=== PATIENT | female | born 1995 | race African-American/Black ===

== ENCOUNTER 2021-07-12 16:34 | Outpatient (CLI) | payer OTHER ==
[2021-07-12 17:32] VITALS: BP 128/68; PULSE 91; RESP 16; TEMP 97
--- NOTE | 2021-07-20 13:16 | P.MSEPDOC ---
Presenting Problems - Arrival Data Date of Arrival on Unit: 07/12/21 Time of Arrival on Unit: 16:34 Mode of Transport: Ambulatory - Complaint OB-Reason for Admission/Chief Complaint: Decreased Movement Medical History - Information : 1 Para: 0 Term: 0 : 0 Abortions: Spontaneous or Elective: 0 Number of Living Children: 0 - Gestational Age Gestational Age by YECENIA (wks/days): 38 Weeks and 4 Days Review of Systems - Review of Systems Constitutional: No problems Breast: No problems ENT: No problems Cardiovascular: No problems Respiratory: No problems Gastrointestinal: No problems Genitourinary: No problems Musculoskeletal: No problems Neurological: No problems Skin: No problems Vital Signs - Temperature Temperature: 97.0 F Temperature Source: Oral - Pulse Right Sitting Pulse Rate: 91 Pulse Assessment Method: Automatic Cuff - Respirations Respiratory Rate: 16 Oxygen Delivery Method: Room Air O2 Sat by Pulse Oximetry: 99 - Blood Pressure Right Arm Blood Pressure: 128/68 Blood Pressure Mean: 88 Blood Pressure Source: Automatic Cuff Medical Screen Scoring - Uterine Contractions Intensity: Mild Resting: Soft to palpation - Assessment - Baby A Heart Rate - NICHD Category: Category I (Normal) NST: Reactive Physician Notification - Physician Notified Physician Notified Date: 07/12/21 Physician Notified Time: 17:04 Physician: Shanda Mcbride Order Received: Yes (d/c home) Maternal Triage Index - Prompt/Priority 3 Prompt Priority 3: Yes Criteria Met for Priority 3: decreased movement, reactive nst Disposition - Disposition OB Disposition: Discharge to home Discharge Date: 07/12/21 Discharge Time: 17:08 I agree with the RN Medical Screening Exam: Yes Case reviewed; plan agreed upon as documented in EMR&OBIX.: Yes Diagnosis: DECREASED MOVEMENTS, THIRD TRIMESTER, UNSP
== END 2021-07-12 17:08 | disposition home or self-care (01) ==
LOC: FBPOP 16:34
PROVIDERS: ATTEND Obstetrics & Gynecology
DX: O36.8130 Decreased fetal movements, third trimester, not applicable or unspecified (principal); Z3A.38 38 weeks gestation of pregnancy
CPT/HCPCS: 59025; G0463; 99213

== ENCOUNTER 2021-07-21 06:07 | Inpatient (IN) | payer OTHER ==
--- NOTE | 2021-07-20 20:15 | P.HPOB ---
History of Present Illness H&P Date: 07/20/21 Chief Complaint: Induction of labor This is a 25 y.o. female, 1, para 0, with an estimated date of confinement of 07/22/2021, estimated gestational age of 39-6/7 weeks, who presents for induction of labor. She complains of irregular contractions and pressure. Her course has been relatively uncomplicated. She transferred care to [facility] at 32 weeks. Ultrasound at 35 weeks showed estimated weight of 6#1oz, 75-90%, with head measurements >90%. labs: Blood type-A+ Antibody screen-neg Hepatitis B surface antigen-neg RPR-NR Rubella-immune HIV-NR GC/Chlamydia/Trich-neg UDS-+for marijuana earlier in [place]-neg Quad-neg OB Hx: [employer] Hx: No hx STDs Social Hx: Single. Works at [employer]. Review of Systems Constitutional: Denies chills, Denies fever Eyes: denies blurred vision, denies pain Ears, nose, mouth and throat: Denies headache, Denies sore throat Cardiovascular: Denies chest pain, Denies shortness of breath Respiratory: Denies cough Gastrointestinal: Reports abdominal pain (irregular contractions) Genitourinary: Reports pelvic pain, Reports Musculoskeletal: Reports low back pain Integumentary: Denies pruritus, Denies rash Neurological: Reports weakness (History of brachial plexus injury at ) Psychiatric: Denies anxiety, Denies depression Past Medical History Additional Past Medical History / Comment(s): History of brachial plexus injury at Past Surgical History: Cholecystectomy, Tonsillectomy Past Anesthesia/Blood Transfusion Reactions: No Reported Reaction Past Psychological History: No Psychological Hx Reported Smoking Status: Never smoker Past Alcohol Use History: None Reported Past Drug Use History: None Reported - Past Family History Mother Family Medical History: Hypertension Medications and Allergies Home Medications Medication Instructions Recorded Confirmed Type Ascorbic Acid [Vitamin C] 250 mg PO DAILY 07/12/21 07/12/21 History Cholecalciferol (Vitamin D3) 125 mcg PO DAILY 07/12/21 07/12/21 History [Vitamin D3 (125 MCG = 5,000 IU)] Iron 18 mg PO 07/12/21 History Pnv No.95/Ferrous Fum/Folic AC 1 each PO 07/12/21 History [ Multivitamin Tablet] Allergies Allergy/AdvReac Type Severity Reaction Status Date / Time No Known Allergies Allergy Verified 07/12/21 16:37 Exam Osteopathic Statement: *. No significant issues noted on an osteopathic structural exam other than those noted in the History and Physical/Consult. HEENT: within normal limits Heart: regular rate and rhythm Lungs: clear to auscultation bilaterally Abdomen: , fundal height 40 cm Cervix: 1.5 cm/60%/-2 heart tones: 140's by doppler Extremities: neg. Irma's Assessment and Plan (1) 39 weeks gestation of Status: Acute Code(s): Z3A.39 - 39 WEEKS GESTATION OF SNOMED Code(s): 22665912 Plan: Proceed with oxytocin induction of labor. Expectant management. Epidural anesthesia if desired.
[2021-07-21] MEDS: LACTATED RINGERS 1,000 ML IV SCH ×3 (06:15→16:18)
[2021-07-21] MEDS ORDERED: METHYLERGONOVINE 0.2 MG/ML 1 ML AMP IM PRN (07:09)
[2021-07-21] MEDS ORDERED: OXYTOCIN 30 UNITS/500 ML NS 30 UNIT in SALINE 1 500ML.BAG IV SCH (07:09)
[2021-07-21] MEDS ORDERED: LIDOCAINE 1% (10MG/ML) FOR IV START INTRADERMA PRN (07:09)
[2021-07-21] MEDS ORDERED: LIDOCAINE 0.5% (PF) 5 MG/ML (50 ML SDV) SQ PRN (07:09)
[2021-07-21] MEDS ORDERED: CARBOPROST TROMETHAMINE 250 MCG/ML 1 ML AMP IM PRN (07:09)
[2021-07-21] MEDS ORDERED: OXYTOCIN 10 UNIT/ML 1 ML VIAL IM PRN (07:09)
[2021-07-21] MEDS ORDERED: TERBUTALINE 1 MG/ML VIAL SQ PRN (07:09)
[2021-07-21 08:25] LABS: Basophils % (A) 0 %; Eosinophils # (A) 0.1 k/uL (0-0.7); Eosinophils % (A) 1 %; HCT 35.9 % (34.0-46.0); Lymphocytes # (A) 2.7 k/uL (1.0-4.8); Lymphocytes % (A) 23 %; MCH 30.6 pg (25.0-35.0); MCHC 33.5 g/dL (31.0-37.0); MCV 91.4 fL (80.0-100.0); Mean Platelet Volume 9.6; Monocytes # (A) 0.5 k/uL (0-1.0); Monocytes % (A) 4 %; Neutrophils # (A) 8.4 k/uL (1.3-7.7); Neutrophils % (A) 71 %; Platelet Count 257 k/uL (150-450); RBC 3.93 m/uL (3.80-5.40); RDW 13.8 % (11.5-15.5); WBC 11.9 k/uL (3.8-10.6)
[2021-07-21] MEDS ORDERED: BUTORPHANOL 1 MG/ML 1 ML VIAL IV PRN (10:11)
[2021-07-21] MEDS ORDERED: BUPIVACAINE (PF) 0.25% 30 ML VIAL ONE (14:40)
[2021-07-21] MEDS ORDERED: SODIUM CHLORIDE 0.9% 100 ML BAG ONE (14:40)
[2021-07-21] MEDS ORDERED: fentaNYL (PF) 50 MCG/ML 5 ML AMP ONE (14:40)
[2021-07-21] MEDS ORDERED: ROPIVACAINE 100 MG, fentaNYL (PF). 200 MCG in SODIUM CHLORIDE 0.9% 76 ML EPIDURAL ONE (15:17)
--- NOTE | 2021-07-21 19:44 | P.PROBDLV ---
Vaginal Delivery Note - . Vaginal Delivery Note: The patient progressed to complete dilation after oxytocin induction of labor and artificial rupture of membranes with thin meconium noted. Once reaching complete, she began pushing. 's head came to a crown. With one further push, the infant's head delivered across the perineum followed by the anterior shoulder. Nose and mouth were bulb suctioned at the perineum. Nuchal cord times one was reduced around the body with one further push. was placed on mother's abdomen and then cord was clamped and cut. was taken to warmer for evaluation. A viable female was noted with scores of 7 at 1 minute and 9 at 5 minutes and weight of 8 pounds 2.3 ounces. Placenta delivered shortly thereafter, intact, with a three-vessel cord. Uterus contracted well after oxytocin was given and uterine massage was carried out. Inspection of the perineum revealed no perineal lacerations. Estimated blood loss is approximately 100 mL's. Both mother and are in stable condition.
[2021-07-21] MEDS ORDERED: ACETAMINOPHEN TAB 325 MG TAB PO PRN (22:28)
[2021-07-21] MEDS ORDERED: diphenhydrAMINE 50 MG/ML 1 ML VIAL IVP PRN ×2 (22:28)
[2021-07-21] MEDS ORDERED: SIMETHICONE 80 MG CHEWABLE PO PRN (22:28)
[2021-07-21] MEDS ORDERED: HYDROCORTISONE 2.5% RECTAL CREAM 30 GM TUBE RECTAL PRN (22:28)
[2021-07-21] MEDS ORDERED: diphenhydrAMINE 50 MG CAP PO PRN (22:28)
[2021-07-21] MEDS ORDERED: ZOLPIDEM 5 MG TAB PO PRN (22:28)
[2021-07-21] MEDS ORDERED: diphenhydrAMINE 25 MG CAP PO PRN (22:28)
[2021-07-21] MEDS ORDERED: IBUPROFEN ORAL SUSP 100 MG/5 ML CUP PO PRN (22:28)
[2021-07-21] MEDS ORDERED: LANOLIN CREAM 5 GM TUBE TOPICAL PRN (22:28)
[2021-07-22] MEDS ORDERED: diphenhydrAMINE 50 MG/ML 1 ML VIAL IVP PRN (04:13)
[2021-07-22] MEDS: IBUPROFEN 600 MG TAB PO PRN ×2 (04:39→15:52)
[2021-07-22 06:31] LABS: Basophils % (A) 0 %; Eosinophils % (A) 0 %; HCT 32.8 % (34.0-46.0); HGB 10.9 gm/dL (11.4-16.0); Lymphocytes % (A) 16 %; MCH 30.5 pg (25.0-35.0); MCHC 33.2 g/dL (31.0-37.0); MCV 91.7 fL (80.0-100.0); Mean Platelet Volume 8.8; Monocytes # (A) 0.5 k/uL (0-1.0); Monocytes % (A) 4 %; Neutrophils # (A) 9.6 k/uL (1.3-7.7); Neutrophils % (A) 78 %; Platelet Count 205 k/uL (150-450); RBC 3.58 m/uL (3.80-5.40); RDW 13.8 % (11.5-15.5); WBC 12.3 k/uL (3.8-10.6)
[2021-07-22] MEDS ORDERED: SENNOSIDES-DOCUSATE SODIUM 1 EACH TAB PO SCH (08:00)
--- NOTE | 2021-07-22 08:56 | P.DS ---
Providers Date of admission: 07/21/21 06:07 Expected date of discharge: 07/22/21 Attending physician: Shanda Mcbride Primary care physician: Stated None - Discharge Diagnosis(es) (1) 39 weeks gestation of Current Visit: No Status: Acute Hospital Course: This is a 25-year-old female 1 para 0 who presented for induction of labor. She underwent oxytocin induction of labor and delivered vaginally a viable female infant on 07/21/2021 with scores of 7 at 1 minute and 9 at 5 minutes and infant weight of 8 pounds 2.3 ounces. Her course has been uncomplicated. Lochia has been decreasing. She is breast-feeding without difficulty. Pain is fairly well controlled with ibuprofen. Vital signs are stable. Abdomen is soft with fundus firm and nontender. Extremity show negative Homans. Impression is status post vaginal delivery day #1. Plan is to discharge home later today. Routine instructions are given. She is advised to follow up in the office in 6 weeks for a check. She is advised to call the office if she had has any further questions or concerns prior to her appointment time. She will be given up her section for ibuprofen. Procedures: Oxytocin induction of labor Spontaneous vaginal delivery of viable female infant on 07/21/2021 Patient Condition at Discharge: Stable Plan - Discharge Summary New Discharge Prescriptions: New Ibuprofen [Motrin] 600 mg PO Q6HR PRN #60 tab PRN Reason: Mild Pain (Scale 1 To 3) Continue Cholecalciferol (Vitamin D3) [Vitamin D3 (125 MCG = 5,000 IU)] 125 mcg PO DAILY Iron 18 mg PO DAILY Ascorbic Acid [Vitamin C] 250 mg PO DAILY Pnv No.95/Ferrous Fum/Folic AC [ Multivitamin Tablet] 1 each PO DAILY Discharge Medication List Ascorbic Acid [Vitamin C] 250 mg PO DAILY 07/12/21 [History] Cholecalciferol (Vitamin D3) [Vitamin D3 (125 MCG = 5,000 IU)] 125 mcg PO DAILY 07/12/21 [History] Iron 18 mg PO DAILY 07/12/21 [History] Pnv No.95/Ferrous Fum/Folic AC [ Multivitamin Tablet] 1 each PO DAILY 07/12/21 [History] Ibuprofen [Motrin] 600 mg PO Q6HR PRN #60 tab 07/22/21 [Rx] Follow up Appointment(s)/Referral(s): Shanda Mcbride DO [Doctor of Osteopathic Medicine] - 08/31/21 2:00 pm Activity/Diet/Wound Care/Special Instructions: Instructions 1. Do not begin any exercise program for 3 weeks. 2. Do not resume sexual relations for 3 weeks or longer if uncomfortable. 3. You may take tub baths or showers at any time. 4. You may use tampons if desired after 3 weeks. 5. Keep the area of episiotomy (stitches) clean and dry. 6. If you are not nursing, wear a good fitting, supportive bra during the day and limit fluid intake for at least 1 week to prevent breast engorgement. 7. Call the office, [phone], within the next week to make appointment for your 6 week checkup if it has not already been made. 8. Report any of the following occurrences to the doctor promptly: a. Heavy, excessive bleeding b. Chills, fever c. Burning or frequency of urination d. Pain or redness and breasts if nursing e. Increasing pain or swelling in episiotomy (stitches). In addition to the above instructions, the following additional should be followed: 1. No heavy lifting or straining (exercising) until after 6 week checkup. 2. Keep abdominal incision clean and dry: You may wear a dressing if more comfortable. 3. Make office appointment for 10 days after going home or as instructed by her doctor. Discharge Disposition: HOME SELF-CARE
[2021-07-22 20:12] VITALS: BP 113/73; PULSE 78; RESP 16; TEMP 98.6
== END 2021-07-22 20:30 | disposition home or self-care (01) | DRG 806 ==
LOC: 4FBP 06:07
PROVIDERS: ADMIT Obstetrics & Gynecology; ATTEND Obstetrics & Gynecology
PROC: 10E0XZZ Delivery of Products of Conception, External Approach (ICD-10-PCS; principal; 2021-07-21)
PROC: 3E033VJ Introduction of Other Hormone into Peripheral Vein, Percutaneous Approach (ICD-10-PCS; 2021-07-21)
PROC: 10907ZC Drainage of Amniotic Fluid, Therapeutic from Products of Conception, Via Natural or Artificial Opening (ICD-10-PCS; 2021-07-21)
DX: O69.81X0 Labor and delivery complicated by cord around neck, without compression, not applicable or unspecified (principal); O99.324 Drug use complicating childbirth; Z37.0 Single live birth; F12.90 Cannabis use, unspecified, uncomplicated; O77.0 Labor and delivery complicated by meconium in amniotic fluid; Z3A.39 39 weeks gestation of pregnancy; Z90.49 Acquired absence of other specified parts of digestive tract
CPT/HCPCS: 85025; 86850; 86900; 86901

== ENCOUNTER 2023-08-08 16:45 | Outpatient (CLI) | payer OTHER, BC ==
[2023-08-08 17:48] VITALS: BP 128/61; PULSE 89; RESP 16; TEMP 97
--- NOTE | 2023-08-10 09:24 | P.MSEPDOC ---
Presenting Problems - Arrival Data Date of Arrival on Unit: 08/08/23 Time of Arrival on Unit: 16:45 Mode of Transport: Ambulatory - Complaint OB-Reason for Admission/Chief Complaint: NST Comment: Pt presents to triage with written order from Dr. Mcbride for biweekly NST for twin gestation O30. Medical History - Information : 3 Para: 1 Term: 1 : 0 Abortions: Spontaneous or Elective: 0 Number of Living Children: 1 - Gestational Age Gestational Age by YECENIA (wks/days): 33 Weeks and 0 Days Review of Systems - Review of Systems Constitutional: No problems Breast: No problems ENT: No problems Cardiovascular: No problems Respiratory: No problems Gastrointestinal: No problems Genitourinary: No problems Musculoskeletal: No problems Neurological: No problems Skin: No problems Vital Signs - Temperature Temperature: 97.0 F Temperature Source: Temporal Artery Scan - Pulse Pulse Oximetery Pulse Rate: 89 Pulse Assessment Method: Pulse Oximetry - Respirations Respiratory Rate: 16 Oxygen Delivery Method: Room Air O2 Sat by Pulse Oximetry: 96 - Blood Pressure Right Arm Blood Pressure: 128/61 Blood Pressure Mean: 83 Blood Pressure Source: Automatic Cuff Medical Screen Scoring - Assessment - Baby A Baseline FHR: 140 Heart Rate - NICHD Category: Category I (Normal) NST: Reactive - Assessment - Baby B Baseline FHR: 140 Heart Rate - NICHD Category: Category I (Normal) NST: Reactive Physician Notification - Notification Comment Comment: Per written order from Dr. Mcbride, if NST is reactive, pt can be discharged home. Maternal Triage Index - Maternal Triage Index Presenting for scheduled procedure w/no complaint: No - Stat/Priority 1 Stat Priority 1: No - Urgent/Priority 2 Urgent Priority 2: No - Prompt/Priority 3 Prompt Priority 3: No - Non-Urgent/Priority 4 Non-Urgent Priority 4: No - Scheduled/Requesting Priority 5 Scheduled/Requesting Priority 5: Yes Criteria Met for Priority 5: Pt presents to triage with written order from Dr. Mcbride for biweekly NST for twin gestation O30. Disposition - Disposition OB Disposition: Discharge to home, Written follow up instructions reviewed Discharge Date: 08/08/23 Discharge Time: 17:17 I agree with the RN Medical Screening Exam: Yes Case reviewed; plan agreed upon as documented in EMR&OBIX.: Yes Diagnosis: TWIN , DICHORIONIC/DIAMNIOTIC, THIRD TRIMESTER
== END 2023-08-08 17:17 | disposition home or self-care (01) ==
LOC: FBPOP 16:45
PROVIDERS: ATTEND Obstetrics & Gynecology
DX: O30.043 Twin pregnancy, dichorionic/diamniotic, third trimester (principal); Z3A.33 33 weeks gestation of pregnancy
CPT/HCPCS: 59025

== ENCOUNTER 2023-08-10 14:49 | Outpatient (CLI) | payer BC, OTHER | END 2023-08-10 15:24 | disposition home or self-care (01) | LOC: FBPOP 14:49 | PROVIDERS: ATTEND Obstetrics & Gynecology | DX: O30.002 Twin pregnancy, unspecified number of placenta and unspecified number of amniotic sacs, second trimester (principal); Z3A.27 27 weeks gestation of pregnancy | CPT/HCPCS: 59025; 99213 ==

== ENCOUNTER 2023-08-14 14:09 | Outpatient (CLI) | payer BC, OTHER ==
[2023-08-14 17:56] VITALS: BP 125/68; PULSE 91; RESP 16; TEMP 97.2
== END 2023-08-14 15:18 | disposition home or self-care (01) ==
LOC: FBPOP 14:09
PROVIDERS: ATTEND Obstetrics & Gynecology
DX: O30.003 Twin pregnancy, unspecified number of placenta and unspecified number of amniotic sacs, third trimester (principal); Z3A.33 33 weeks gestation of pregnancy
CPT/HCPCS: 59025

== ENCOUNTER 2023-08-18 15:01 | Outpatient (CLI) | payer BC, OTHER ==
[2023-08-18 17:16] VITALS: BP 129/60; PULSE 90; RESP 18; TEMP 97.7
--- NOTE | 2023-08-19 07:01 | P.MSEPDOC ---
Presenting Problems - Arrival Data Date of Arrival on Unit: 08/18/23 Time of Arrival on Unit: 15:01 Mode of Transport: Ambulatory - Complaint OB-Reason for Admission/Chief Complaint: NST Medical History - Information : 2 Para: 1 Term: 1 : 0 Abortions: Spontaneous or Elective: 0 Number of Living Children: 1 - Gestational Age Gestational Age by YECENIA (wks/days): 34 Weeks and 3 Days - History Complications: Multiple Review of Systems - Review of Systems Constitutional: No problems Breast: No problems ENT: No problems Cardiovascular: No problems Respiratory: No problems Gastrointestinal: No problems Genitourinary: No problems Musculoskeletal: No problems Neurological: No problems Skin: No problems Vital Signs - Temperature Temperature: 97.7 F Temperature Source: Temporal Artery Scan - Pulse Pulse Oximetery Pulse Rate: 90 Pulse Assessment Method: Pulse Oximetry - Respirations Respiratory Rate: 18 Oxygen Delivery Method: Room Air O2 Sat by Pulse Oximetry: 99 - Blood Pressure Right Arm Blood Pressure: 129/60 Blood Pressure Mean: 83 Blood Pressure Source: Automatic Cuff Medical Screen Scoring - Uterine Contractions Frequency From (mins): 2 Frequency To (mins): 2 Duration From (seconds): 30 Duration To (seconds): 60 Intensity: Mild Resting: Soft to palpation - Assessment - Baby A Baseline FHR: 135 Heart Rate - NICHD Category: Category I (Normal) NST: Reactive - Assessment - Baby B Baseline FHR: 135 Heart Rate - NICHD Category: Category I (Normal) NST: Reactive Physician Notification - Physician Notified Physician Notified Date: 08/18/23 Physician Notified Time: 15:57 Physician: Tomy Silverman New Order Received: Yes (discharge home) - Notification Comment Comment: notified of pt here for NST but RN also tracing contractions pt describes as mild cramping. pt 34 3/7 weeks gestation and twins. order to discharge patient home with instructions Maternal Triage Index - Maternal Triage Index Presenting for scheduled procedure w/no complaint: Yes - Scheduled/Requesting Priority 5 Scheduled/Requesting Priority 5: Yes Criteria Met for Priority 5: Pt arrives for scheduled NST. pt is also having some tracable contractions every 2 minutes that she describes as mild cramping. Disposition - Disposition OB Disposition: Discharge to home Discharge Date: 08/18/23 Discharge Time: 16:00 I agree with the RN Medical Screening Exam: Yes Case reviewed; plan agreed upon as documented in EMR&OBIX.: Yes Diagnosis: RELATED CONDITIONS, UNSPECIFIED, THIRD TRIMESTER
== END 2023-08-18 16:00 | disposition home or self-care (01) ==
LOC: FBPOP 15:01
PROVIDERS: ATTEND Obstetrics & Gynecology
DX: O36.8393 Maternal care for abnormalities of the fetal heart rate or rhythm, unspecified trimester, fetus 3 (principal); Z3A.34 34 weeks gestation of pregnancy
CPT/HCPCS: 59025

== ENCOUNTER 2023-08-22 16:49 | Outpatient (CLI) | payer BC, OTHER ==
[2023-08-22 17:49] VITALS: BP 127/64; PULSE 93; RESP 16; TEMP 97.5
--- NOTE | 2023-08-23 08:15 | P.MSEPDOC ---
Presenting Problems - Arrival Data Date of Arrival on Unit: 08/22/23 Time of Arrival on Unit: 16:49 Mode of Transport: Ambulatory - Complaint OB-Reason for Admission/Chief Complaint: NST Comment: Pt presents to triage for biweekly NST for twins (O30). Pt has written order from Dr. Mcbride, if reactive, can discharge pt home. Medical History - Information : 2 Para: 1 Term: 1 : 0 Abortions: Spontaneous or Elective: 0 Number of Living Children: 1 - Gestational Age Gestational Age by YECENIA (wks/days): 35 Weeks and 0 Days Review of Systems - Review of Systems Constitutional: No problems Breast: No problems ENT: No problems Cardiovascular: No problems Respiratory: No problems Gastrointestinal: No problems Genitourinary: No problems Musculoskeletal: No problems Neurological: No problems Skin: No problems Vital Signs - Temperature Temperature: 97.5 F Temperature Source: Temporal Artery Scan - Pulse Pulse Oximetery Pulse Rate: 93 Pulse Assessment Method: Pulse Oximetry - Respirations Respiratory Rate: 16 Oxygen Delivery Method: Room Air - Blood Pressure Right Arm Blood Pressure: 127/64 Blood Pressure Mean: 85 Blood Pressure Source: Automatic Cuff Medical Screen Scoring - Assessment - Baby A Baseline FHR: 135 Heart Rate - NICHD Category: Category I (Normal) NST: Reactive - Assessment - Baby B Baseline FHR: 135 Heart Rate - NICHD Category: Category I (Normal) NST: Reactive Physician Notification - Notification Comment Comment: Pt has written order from Dr. Mcbride, if reactive, can discharge pt home. Maternal Triage Index - Maternal Triage Index Presenting for scheduled procedure w/no complaint: No - Stat/Priority 1 Stat Priority 1: No - Urgent/Priority 2 Urgent Priority 2: No - Prompt/Priority 3 Prompt Priority 3: No - Non-Urgent/Priority 4 Non-Urgent Priority 4: No - Scheduled/Requesting Priority 5 Scheduled/Requesting Priority 5: Yes Criteria Met for Priority 5: Pt presents to triage for biweekly NST for twins (O30). Pt has written order from Dr. Mcbride, if reactive, can discharge pt home. Disposition - Disposition OB Disposition: Discharge to home, Written follow up instructions reviewed Discharge Date: 08/22/23 Discharge Time: 17:20 I agree with the RN Medical Screening Exam: Yes Case reviewed; plan agreed upon as documented in EMR&OBIX.: Yes Diagnosis: TWIN , DICHORIONIC/DIAMNIOTIC, THIRD TRIMESTER
== END 2023-08-22 17:20 | disposition home or self-care (01) ==
LOC: FBPOP 16:49
PROVIDERS: ATTEND Obstetrics & Gynecology
DX: O30.043 Twin pregnancy, dichorionic/diamniotic, third trimester (principal); Z3A.35 35 weeks gestation of pregnancy
CPT/HCPCS: 59025

== ENCOUNTER 2023-08-24 15:13 | Outpatient (CLI) | payer BC, OTHER ==
[2023-08-24 16:48] VITALS: BP 123/64; PULSE 86; RESP 18; TEMP 98.1
--- NOTE | 2023-08-25 08:38 | P.MSEPDOC ---
Presenting Problems - Arrival Data Date of Arrival on Unit: 08/24/23 Time of Arrival on Unit: 15:14 Mode of Transport: Ambulatory - Complaint OB-Reason for Admission/Chief Complaint: NST Medical History - Information : 2 Para: 1 Term: 1 : 0 Abortions: Spontaneous or Elective: 0 Number of Living Children: 1 - Gestational Age Gestational Age by YECENIA (wks/days): 35 Weeks and 2 Days - History Complications: Multiple Review of Systems - Review of Systems Constitutional: No problems Breast: No problems ENT: No problems Cardiovascular: No problems Respiratory: No problems Gastrointestinal: No problems Genitourinary: No problems Musculoskeletal: No problems Neurological: No problems Skin: No problems Vital Signs - Temperature Temperature: 98.1 F Temperature Source: Temporal Artery Scan - Pulse Right Pulse Oximetery Pulse Rate: 86 Pulse Assessment Method: Pulse Oximetry - Respirations Respiratory Rate: 18 Oxygen Delivery Method: Room Air O2 Sat by Pulse Oximetry: 98 - Blood Pressure Right Arm Blood Pressure: 123/64 Blood Pressure Mean: 83 Blood Pressure Source: Automatic Cuff Medical Screen Scoring - Uterine Contractions Frequency From (mins): 0 Frequency To (mins): 0 - Assessment - Baby A Baseline FHR: 135 Heart Rate - NICHD Category: Category I (Normal) NST: Reactive - Assessment - Baby B Baseline FHR: 130 Heart Rate - NICHD Category: Category I (Normal) NST: Reactive Physician Notification - Notification Comment Comment: NST written order in chart states patient may be discharged if NSTs reactive. Maternal Triage Index - Maternal Triage Index Presenting for scheduled procedure w/no complaint: Yes - Scheduled/Requesting Priority 5 Scheduled/Requesting Priority 5: Yes Criteria Met for Priority 5: NST for multiple Disposition - Disposition OB Disposition: Discharge to home Discharge Date: 08/24/23 Discharge Time: 16:00 I agree with the RN Medical Screening Exam: Yes Case reviewed; plan agreed upon as documented in EMR&OBIX.: Yes Diagnosis: TWIN , DICHORIONIC/DIAMNIOTIC, THIRD TRIMESTER
== END 2023-08-24 16:00 | disposition home or self-care (01) ==
LOC: FBPOP 15:13
PROVIDERS: ATTEND Obstetrics & Gynecology
DX: O30.043 Twin pregnancy, dichorionic/diamniotic, third trimester (principal); Z3A.35 35 weeks gestation of pregnancy
CPT/HCPCS: 59025

== ENCOUNTER 2023-08-29 15:59 | Outpatient (CLI) | payer BC, OTHER ==
[2023-08-29 17:45] VITALS: BP 131/65; PULSE 82; RESP 18; TEMP 96.6
--- NOTE | 2023-09-01 02:54 | P.MSEPDOC ---
Presenting Problems - Arrival Data Date of Arrival on Unit: 08/29/23 Time of Arrival on Unit: 15:59 Mode of Transport: Ambulatory - Complaint OB-Reason for Admission/Chief Complaint: NST Medical History - Information : 2 Para: 1 Term: 1 : 0 Abortions: Spontaneous or Elective: 0 Number of Living Children: 1 - Gestational Age Gestational Age by YECENIA (wks/days): 36 Weeks and 0 Days Review of Systems - Review of Systems Constitutional: No problems Breast: No problems ENT: No problems Cardiovascular: No problems Respiratory: No problems Gastrointestinal: No problems Genitourinary: No problems Musculoskeletal: No problems Neurological: No problems Skin: No problems Vital Signs - Temperature Temperature: 96.6 F Temperature Source: Temporal Artery Scan - Pulse Pulse Oximetery Pulse Rate: 82 Pulse Assessment Method: Pulse Oximetry - Respirations Respiratory Rate: 18 Oxygen Delivery Method: Room Air O2 Sat by Pulse Oximetry: 99 - Blood Pressure Right Arm Blood Pressure: 131/65 Blood Pressure Mean: 87 Blood Pressure Source: Automatic Cuff Disposition - Disposition OB Disposition: Discharge to home I agree with the RN Medical Screening Exam: Yes Case reviewed; plan agreed upon as documented in EMR&OBIX.: Yes Diagnosis: TWIN , DICHORIONIC/DIAMNIOTIC, THIRD TRIMESTER
== END 2023-08-29 17:30 | disposition home or self-care (01) ==
LOC: FBPOP 15:59
PROVIDERS: ATTEND Obstetrics & Gynecology
DX: O30.043 Twin pregnancy, dichorionic/diamniotic, third trimester (principal); Z3A.36 36 weeks gestation of pregnancy
CPT/HCPCS: 59025

== ENCOUNTER 2023-08-31 14:53 | Outpatient (CLI) | payer BC, OTHER ==
--- NOTE | 2023-09-01 02:53 | P.MSEPDOC ---
Presenting Problems - Arrival Data Date of Arrival on Unit: 08/31/23 Time of Arrival on Unit: 14:53 Mode of Transport: Ambulatory - Complaint OB-Reason for Admission/Chief Complaint: NST Comment: pt here for twice weekly nst, also having some contractions Medical History - Information : 2 Para: 1 Term: 1 Abortions: Spontaneous or Elective: 0 - Gestational Age Gestational Age by YECENIA (wks/days): 36 Weeks and 2 Days - History Complications: Multiple Review of Systems - Review of Systems Constitutional: No problems Breast: No problems ENT: No problems Cardiovascular: No problems Respiratory: No problems Gastrointestinal: No problems Genitourinary: No problems Musculoskeletal: No problems Neurological: No problems Skin: No problems Medical Screen Scoring - Assessment - Baby A Baseline FHR: 140 Heart Rate - NICHD Category: Category I (Normal) NST: Reactive - Assessment - Baby B Baseline FHR: 135 Heart Rate - NICHD Category: Category I (Normal) NST: Reactive Physician Notification - Physician Notified Physician Notified Date: 08/31/23 Physician Notified Time: 15:22 Physician: Shanda Mcbride Order Received: Yes - Notification Comment Comment: reactive nst for twins, cervical exam done per Dr. Mcbride, discharged home, pt only 1.5 cm dilated, contractions irregular per pt Maternal Triage Index - Maternal Triage Index Presenting for scheduled procedure w/no complaint: No - Stat/Priority 1 Stat Priority 1: No - Urgent/Priority 2 Urgent Priority 2: No - Prompt/Priority 3 Prompt Priority 3: No - Non-Urgent/Priority 4 Non-Urgent Priority 4: No - Scheduled/Requesting Priority 5 Scheduled/Requesting Priority 5: Yes Criteria Met for Priority 5: pt presents for twice a week nst for twins and c/o contractions, pt has written orders to discharge if reactive nst Disposition - Disposition OB Disposition: Triage, Discharge to home, Written follow up instructions reviewed Discharge Date: 08/31/23 Discharge Time: 15:30 I agree with the RN Medical Screening Exam: Yes Case reviewed; plan agreed upon as documented in EMR&OBIX.: Yes Diagnosis: TWIN , DICHORIONIC/DIAMNIOTIC, THIRD TRIMESTER
== END 2023-08-31 15:30 | disposition home or self-care (01) ==
LOC: FBPOP 14:53
PROVIDERS: ATTEND Obstetrics & Gynecology
DX: O30.003 Twin pregnancy, unspecified number of placenta and unspecified number of amniotic sacs, third trimester (principal); O28.8 Other abnormal findings on antenatal screening of mother; Z3A.36 36 weeks gestation of pregnancy
CPT/HCPCS: 59025

== ENCOUNTER 2023-09-04 18:30 | Outpatient (CLI) | payer BC, OTHER ==
[2023-09-04 19:58] VITALS: BP 123/66; PULSE 100; RESP 16; TEMP 96.8
--- NOTE | 2023-09-05 06:30 | P.MSEPDOC ---
Presenting Problems - Arrival Data Date of Arrival on Unit: 09/04/23 Time of Arrival on Unit: 18:30 Mode of Transport: Ambulatory - Complaint OB-Reason for Admission/Chief Complaint: Possible Onset of Labor Medical History - Information : 2 Para: 1 Term: 1 : 0 Abortions: Spontaneous or Elective: 0 Number of Living Children: 1 - Gestational Age Gestational Age by YECENIA (wks/days): 36 Weeks and 6 Days - History Complications: Multiple Review of Systems - Review of Systems Constitutional: No problems Breast: No problems ENT: No problems Cardiovascular: No problems Respiratory: No problems Gastrointestinal: No problems Genitourinary: No problems Musculoskeletal: No problems Neurological: No problems Skin: No problems Vital Signs - Temperature Temperature: 96.8 F Temperature Source: Temporal Artery Scan - Pulse Right Brachial Pulse Rate: 100 Pulse Assessment Method: Automatic Cuff - Respirations Respiratory Rate: 16 Oxygen Delivery Method: Room Air - Blood Pressure Right Arm Blood Pressure: 123/66 Blood Pressure Mean: 85 Blood Pressure Source: Automatic Cuff Medical Screen Scoring - Cervical Exam Dilation (cm): 2 Effacement (%): 50 Station: -2 Membranes: Intact - Assessment - Baby A Baseline FHR: 135 Heart Rate - NICHD Category: Category I (Normal) NST: Reactive - Assessment - Baby B Baseline FHR: 135 Heart Rate - NICHD Category: Category I (Normal) NST: Reactive Physician Notification - Physician Notified Physician Notified Date: 09/04/23 Physician Notified Time: 18:52 Physician: Tomy Silverman New Order Received: Yes - Notification Comment Comment: d/c erma, Dr. Silverman at bedside for eval. Maternal Triage Index - Maternal Triage Index Presenting for scheduled procedure w/no complaint: No - Stat/Priority 1 Stat Priority 1: No - Urgent/Priority 2 Urgent Priority 2: No - Prompt/Priority 3 Prompt Priority 3: Yes Criteria Met for Priority 3: signs of labor 36 6/7 Disposition - Disposition OB Disposition: Discharge to home Discharge Date: 09/04/23 Discharge Time: 19:10 I agree with the RN Medical Screening Exam: Yes Case reviewed; plan agreed upon as documented in EMR&OBIX.: Yes Diagnosis: FALSE LABOR AT OR AFTER 37 COMPLETED WEEKS OF GESTATION
== END 2023-09-04 19:10 | disposition home or self-care (01) ==
LOC: FBPOP 18:30
PROVIDERS: ATTEND Obstetrics & Gynecology
DX: O47.03 False labor before 37 completed weeks of gestation, third trimester (principal); Z3A.36 36 weeks gestation of pregnancy; Z79.82 Long term (current) use of aspirin
CPT/HCPCS: 59025; 99213

== ENCOUNTER 2023-09-05 06:06 | Inpatient (IN) | payer BC, OTHER ==
--- NOTE | 2023-09-04 20:24 | P.HPOB ---
History of Present Illness H&P Date: 09/04/23 Chief Complaint: Twin , scheduled primary section This is a 28-year-old female 2 para 1 with an estimated date of confinement of September 26, 2023, estimated gestational age of 37-0/7 weeks, with 20 diamniotic dichorionic gestation, who presents for primary section due to twin gestation and intrauterine growth restriction. Baby B had shown discordant growth and intrauterine growth restriction on an ultrasound a few weeks ago. She did have another follow-up ultrasound with maternal- medicine on September 01 that did show discordance of only 1.4% but 1 elevated umbilical artery Doppler sample on twin B. Twin A showed abdominal c ircumference of 6% and twin B showed abdominal circumference of 8%. She has been doing regular surveillance with nonstress test and biophysical profiles. She does admit to good movement. Maternal- medicine has recommended delivery by 37 weeks. Baby A has been vertex but baby B has been transverse. labs: Maternity [id number] Hemoglobin-12.1 Blood type-A+ Rubella-immune RPR-nonreactive HIV-nonreactive Hepatitis C antibody-nonreactive Random glucose-89 Antibody screen-negative Hepatitis B surface antigen-negative 1 hour Glucola-120 group B streptococcus-positive Obstetrical history: G2, P1. History of 1 vaginal delivery at term. Gynecologic history: No history of sexually transmitted diseases. Social history: She is single. She works full-time as a breakfast server. Review of Systems Constitutional: Denies chills, Denies fever Eyes: denies blurred vision, denies pain Ears, nose, mouth and throat: Denies headache, Denies sore throat Cardiovascular: Denies chest pain, Denies shortness of breath Respiratory: Denies cough Gastrointestinal: Reports abdominal pain (Occasional contractions) Genitourinary: Reports pelvic pain, Reports Musculoskeletal: Reports low back pain Integumentary: Denies pruritus, Denies rash Neurological: Denies numbness, Denies weakness Psychiatric: Denies anxiety, Denies depression Past Medical History Past Medical History: GERD/Reflux Additional Past Medical History / Comment(s): History of brachial plexus injury at , History of Any Multi-Drug Resistant Organisms: None Reported Past Surgical History: Cholecystectomy, Tonsillectomy Past Anesthesia/Blood Transfusion Reactions: Postoperative Nausea & Vomiting (PONV) Additional Past Anesthesia/Blood Transfusion Reaction / Comment(s): family hx n/v Past Psychological History: No Psychological Hx Reported Smoking Status: Never smoker Past Alcohol Use History: None Reported Past Drug Use History: Marijuana (Quit with ) - Past Family History Mother Family Medical History: Hypertension Medications and Allergies Home Medications Medication Instructions Recorded Confirmed Type Aspirin 81 mg PO DAILY 09/01/23 09/04/23 History Ferrous Sulfate [Feosol] 325 mg PO DAILY 09/01/23 09/04/23 History Allergies Allergy/AdvReac Type Severity Reaction Status Date / Time No Known Allergies Allergy Verified 09/04/23 18:40 Exam Osteopathic Statement: *. No significant issues noted on an osteopathic structural exam other than those noted in the History and Physical/Consult. HEENT: Within normal limits Heart: Regular rate and rhythm Lungs: Clear to auscultation bilaterally Abdomen: Cervix: Closed/60%/-3 station heart tones: Baby A was 140s and baby B was 140s. Extremities: Negative Homans Assessment and Plan (1) Dichorionic diamniotic twin in third trimester Status: Acute Code(s): O30.043 - TWIN , DICHORIONIC/DIAMNIOTIC, THIRD TRIMESTER SNOMED Code(s): 637559834 (2) 37 weeks gestation of Status: Acute Code(s): Z3A.37 - 37 WEEKS GESTATION OF SNOMED Code(s): 26422176 (3) Intrauterine growth restriction (IUGR) affecting care of mother, third trimester, single gestation Status: Acute Code(s): O36.5930 - MATERN CARE FOR OTH OR SUSP POOR FETL GRTH, THIRD TRI, UNSP SNOMED Code(s): 733101187 Plan: Proceed with primary low-transverse section. I have discussed the risks, benefits, and alternative therapies for the above- mentioned procedure and for both sedation/anesthesia as well as necessary blood products administration, if indicated, as they pertain to this patient. The patient has indicated her understanding and acceptance of the risks and procedures discussed.
[2023-09-05] MEDS ORDERED: CARBOPROST TROMETHAMINE 250 MCG/ML 1 ML AMP IM PRN (06:26)
[2023-09-05] MEDS ORDERED: OXYTOCIN 30 UNITS/500 ML NS 30 UNIT in SALINE 1 500ML.BAG IV SCH (06:26)
[2023-09-05] MEDS ORDERED: OXYTOCIN 10 UNIT/ML 1 ML VIAL IM PRN (06:26)
[2023-09-05] MEDS ORDERED: TRANEXAMIC 1,000 MG/100ML-NACL 1,000 MG in EMPTY BAG 1 BAG IV PRN (06:26)
[2023-09-05] MEDS ORDERED: LIDOCAINE 1% (10MG/ML) FOR IV START INTRADERMA PRN (06:26)
[2023-09-05] MEDS ORDERED: METHYLERGONOVINE 0.2 MG/ML 1 ML AMP IM PRN (06:26)
[2023-09-05] MEDS ORDERED: miSOPROStoL 200 MCG TAB PO PRN (06:26)
[2023-09-05] MEDS: LACTATED RINGERS 1,000 ML IV SCH (06:30)
[2023-09-05 06:43] LABS: Basophils % (A) 0 %; Eosinophils # (A) 0.1 k/uL (0-0.7); Eosinophils % (A) 1 %; HCT 36.8 % (34.0-46.0); HGB 12.6 gm/dL (11.4-16.0); Lymphocytes # (A) 2.7 k/uL (1.0-4.8); Lymphocytes % (A) 26 %; MCH 30.9 pg (25.0-35.0); MCHC 34.2 g/dL (31.0-37.0); MCV 90.1 fL (80.0-100.0); Mean Platelet Volume 9.2; Monocytes # (A) 0.3 k/uL (0-1.0); Monocytes % (A) 3 %; Neutrophils # (A) 6.8 k/uL (1.3-7.7); Neutrophils % (A) 67 %; Platelet Count 210 k/uL (150-450); RBC 4.09 m/uL (3.80-5.40); RDW 13.8 % (11.5-15.5)
[2023-09-05] MEDS: ceFAZolin 3 GM in SODIUM CHLORIDE 0.9% 100 ML IVPB ONE (07:11)
[2023-09-05] MEDS: CITRIC ACID-SODIUM CITRATE 15 ML CUP PO ONE (07:12)
[2023-09-05] MEDS ORDERED: OXYTOCIN 30 UNITS/500 ML NS BAG IV ONE (07:54)
[2023-09-05] MEDS ORDERED: ONDANSETRON 4 MG/2 ML VIAL ONE (07:54)
[2023-09-05] MEDS ORDERED: KETOROLAC 15 MG/ML 1 ML VIAL ONE (07:54)
[2023-09-05] MEDS ORDERED: ePHEDrine 50 MG/ML 1 ML VIAL ONE (07:54)
[2023-09-05] MEDS ORDERED: DEXAMETHASONE SOD PHOSPHATE 4 MG/ML 1 ML VIAL ONE (07:54)
[2023-09-05] MEDS ORDERED: NALOXONE 0.4 MG/ML 1 ML VIAL IV PRN ×2 (08:31→08:57)
[2023-09-05] MEDS ORDERED: KETOROLAC 15 MG/ML 1 ML VIAL IVP PRN (08:31)
--- NOTE | 2023-09-05 08:48 | P.OP ---
Date of Procedure: 09/05/23 Preoperative Diagnosis: 1. Intrauterine at 37-0/7 weeks twin gestation. 2. Dichorionic diamniotic twin gestation. 3. Intrauterine growth restriction on both babies. Postoperative Diagnosis: Same Procedure(s) Performed: Primary low-transverse section Anesthesia: spinal (Duramorph) Surgeon: Shanda Mcbride Location Manager #1: Jojo Wiggins Estimated Blood Loss (ml): 600 Pathology: other (Placenta) Condition: stable Disposition: floor Indications for Procedure: This is a 28-year-old female 2 para 1 at 37-0/7 weeks with twin dichorionic/diamniotic gestation. She is undergoing a primary section due to twin gestation and intrauterine growth restriction. I have discussed the risks, benefits, and alternative therapies for the above- mentioned procedure and for both sedation/anesthesia as well as necessary blood products administration, if indicated, as they pertain to this patient. The patient has indicated her understanding and acceptance of the risks and procedures discussed. Operative Findings: Baby A is a viable female in the vertex presentation with scores of 8 at 1 minute and 9 at 5 minutes and weight of 6 pounds 10 ounces. Baby B is in the footling breech presentation with scores of 8 at 1 minute and 9 at 5 minutes and weight of 4 pounds 13 ounces. Normal uterus tubes and ovaries are noted. Description of Procedure: The patient is taken to the operating room where she is placed in the dorsal supine position with leftward tilt after spinal Duramorph anesthesia is given. She is prepped and draped in the normal sterile fashion. Skin was tested and found to be adequately anesthetized. A Pfannenstiel skin incision was made with a scalpel. A second knife was used to carry the incision down to the underlying layer of fascia. The fascia was nicked in the midline with a scalpel and then extended laterally bilaterally with Vilchis scissors. The anterior lip of the fascia was grasped with 2 Fernie clamps and then dissected off the underlying rectus muscle in the midline with Vilchis scissors. The inferior aspect of the fascial incision was grasped with 2 Fernie clamps and dissected off the underlying rectus muscle and the midline with Vilchis scissors. Next the peritoneum layer was tented up with 2 hemostats and then entered sharply with the scalpel. The incision is extended superiorly and inferiorly with Metzenbaum scissors. Next a DeLee retractor is placed. The vesicouterine peritoneum is entered sharply with Metzenbaum scissors and extended laterally bilaterally with Metzenbaum scissors and then the bladder flap is pushed inferiorly. The lower uterine segment is incised in transverse fashion with the scalpel and then bluntly entered with a hemostat. Clear fluid is noted. The incision was then extended laterally bilaterally with 2 fingers. Next the infant's head is delivered through the incision. Nose and mouth are bulb suctioned. The remainder of the is easily delivered and placed on mother's abdomen. Cord is clamped and cut. is taken to warmer by nursing staff. Next the sac for baby B is brought to the incision and both feet are palpated and grasped. Artificial rupture membranes was carried out with a hemostat. Clear fluid is noted. Infant is then brought through the incision by the feet followed by the trunk and the arms in a flexed position followed by the head in a flexed position. Nose and mouth were bulb suctioned and cord was clamped and cut. Infant was taken to warmer for evaluation by nursing staff. Uterine fundus is gently massaged and placentas are delivered manually. Uterus is exteriorized and cleared of all clots and debris. Uterine incision is closed with 0 Vicryl suture in a running locked fashion. A second layer of 0 Vicryl suture is used in a running fashion for hemostasis. Once adequate hemostasis as assured, the vesicouterine peritoneum is reapproximated with 2-0 Vicryl suture in a running fashion. Posterior cul-de-sac is suctioned of all clots and debris. Uterus is returned to the abdomen. Incision is noted to be hemostatic. Peritoneal layer is closed with 0 Vicryl suture in a running fashion. Muscle layer is reapproximated with 0 Vicryl suture in interrupted fashion. Fascia layer is then closed with 0 PDS suture with 2 sutures meeting in the midline and the knots buried in either side and in the midline. The subcutaneous tissue was then closed with 2-0 Vicryl suture. Skin layer was then closed with tricia. All sponge and needle counts are correct. The patient is taken to recovery room in stable condition.
[2023-09-05] MEDS ORDERED: diphenhydrAMINE 50 MG CAP PO PRN (08:57)
[2023-09-05] MEDS ORDERED: HYDROmorphone 0.5 MG/0.5 ML SYRINGE IVP PRN (08:57)
[2023-09-05] MEDS ORDERED: ONDANSETRON 4 MG/2 ML VIAL IVP PRN (08:57)
[2023-09-05] MEDS ORDERED: ZOLPIDEM 5 MG TAB PO PRN (08:57)
[2023-09-05] MEDS ORDERED: HYDROmorphone 1 MG/ML 1 ML SYRINGE IVP PRN (08:57)
[2023-09-05] MEDS ORDERED: LANOLIN CREAM 5 GM TUBE TOPICAL PRN (08:57)
[2023-09-05] MEDS ORDERED: diphenhydrAMINE 25 MG CAP PO PRN (08:57)
[2023-09-05] MEDS ORDERED: diphenhydrAMINE 50 MG/ML 1 ML VIAL IVP PRN (08:57)
[2023-09-05] MEDS: SENNOSIDES-DOCUSATE SODIUM 1 EACH TAB PO SCH (09:14)
[2023-09-05] MEDS: diphenhydrAMINE 50 MG/ML 1 ML VIAL IVP PRN ×2 (09:35→20:58)
[2023-09-05] MEDS: ACETAMINOPHEN TAB 500 MG TAB PO SCH (11:33)
[2023-09-05] MEDS: ACETAMINOPHEN IV (For NPO) 1,000 MG in EMPTY BAG 1 BAG IVPB PRN (11:38)
[2023-09-05] MEDS: KETOROLAC 15 MG/ML 1 ML VIAL IVP PRN (15:21)
[2023-09-05] MEDS: IBUPROFEN 600 MG TAB PO SCH (15:57)
[2023-09-05] MEDS: ONDANSETRON 4 MG/2 ML VIAL IVP PRN (19:30)
[2023-09-05] MEDS: METOCLOPRAMIDE 5 MG/ML 2 ML VIAL IVP PRN (20:57)
--- NOTE | 2023-09-06 06:47 | P.PN ---
Progress Note - Text Progress Note Date: 09/06/23 Patient is postop day 1 from with spinal Duramorph. Muhammad has been removed. Patient is able to ambulate and has been able to go to the bathroom. Has been able to micturate this morning. No bowel movements. There is no nausea vomiting or dizziness. Mild pruritus overnight. Using pain medications as needed.
[2023-09-06] MEDS: FERROUS SULFATE 325 MG TAB PO SCH (07:37)
[2023-09-06 07:51] LABS: Basophils % (A) 0 %; Eosinophils # (A) 0.1 k/uL (0-0.7); Eosinophils % (A) 1 %; HCT 32.8 % (34.0-46.0); Lymphocytes # (A) 2.3 k/uL (1.0-4.8); Lymphocytes % (A) 19 %; MCH 30.6 pg (25.0-35.0); MCHC 33.5 g/dL (31.0-37.0); MCV 91.3 fL (80.0-100.0); Monocytes # (A) 0.4 k/uL (0-1.0); Monocytes % (A) 4 %; Neutrophils # (A) 9.4 k/uL (1.3-7.7); Neutrophils % (A) 76 %; Platelet Count 183 k/uL (150-450); RBC 3.59 m/uL (3.80-5.40); RDW 13.5 % (11.5-15.5); WBC 12.4 k/uL (3.8-10.6)
--- NOTE | 2023-09-06 09:02 | P.PNOBGPC ---
Subjective - Subjective Principal diagnosis: Status post primary postoperative day #1 Interval history: Patient is doing well. She did have a lot of nausea yesterday but it has resolved today. She is passing flatus and tolerating regular diet. She has urinated. She is trying to pump her breast milk. Patient reports: Reports appetite normal, Reports voiding normally, Reports pain well controlled, Reports ambulating normally : other (Both babies are in level I nursery.) Objective - Vital Signs Latest vital signs: Vital Signs Temp Pulse Pulse Resp BP Pulse Ox 09/06/23 07:13 98.5 F 62 16 95/59 99 09/06/23 04:30 97.7 F 62 16 98/58 99 09/06/23 00:37 98.7 F 76 19 95/57 100 09/05/23 19:15 98.0 F 76 19 122/65 100 09/05/23 16:00 97.6 F 86 16 118/64 97 09/05/23 12:32 97.4 F L 91 16 112/64 99 09/05/23 10:59 85 16 104/53 100 09/05/23 10:43 82 18 120/56 97 09/05/23 10:29 77 18 117/56 97 09/05/23 10:14 78 16 119/57 96 09/05/23 09:59 77 18 117/56 98 09/05/23 09:44 85 16 115/57 98 09/05/23 09:31 90 18 115/57 95 09/05/23 09:29 87 16 115/57 96 09/05/23 09:14 80 18 120/55 98 Intake and Output 09/05/23 09/06/23 09/06/23 22:59 06:59 14:59 Intake Total 480 Output Total 400 1200 300 Balance -400 -720 -300 Intake: Oral 480 Output: Urine 1200 300 Straight 500 Emesis 400 Other: Voiding Method Indwelling Catheter # Voids 1 0 # Bowel Movements 0 - Exam Extremities: Present: normal. Absent: tenderness, edema Abdomen: Present: normal appearance, soft (Positive bowel sounds 4). Absent: distention, tenderness Incision: Present: normal, dry, intact. Absent: erythematous Uterus: Present: normal, firm. Absent: tenderness - Labs Labs: Abnormal Lab Results - Last 24 Hours (Table) 09/06/23 Range/Units 07:42 WBC 12.4 H (3.8-10.6) k/uL RBC 3.59 L (3.80-5.40) m/uL Hgb 11.0 L (11.4-16.0) gm/dL Hct 32.8 L (34.0-46.0) % Neutrophils # 9.4 H (1.3-7.7) k/uL Assessment and Plan Assessment: Status post primary low transverse section postoperative day #1 (1) Dichorionic diamniotic twin in third trimester Current Visit: No Status: Acute Code(s): O30.043 - TWIN , DICHORIONIC/DIAMNIOTIC, THIRD TRIMESTER SNOMED Code(s): 981870313 (2) 37 weeks gestation of Current Visit: No Status: Acute Code(s): Z3A.37 - 37 WEEKS GESTATION OF SNOMED Code(s): 92946728 (3) Intrauterine growth restriction (IUGR) affecting care of mother, third trimester, single gestation Current Visit: No Status: Acute Code(s): O36.5930 - MATERN CARE FOR OTH OR SUSP POOR FETL GRTH, THIRD TRI, UNSP SNOMED Code(s): 282002318 Plan: Continue with postoperative and care today. Advance diet as tolerated. Will continue to pump breast milk. May shower.
[2023-09-06] MEDS: SIMETHICONE 80 MG CHEWABLE PO PRN (20:01)
[2023-09-06] MEDS: LACTATED RINGERS 1,000 ML IV ONE (20:22)
--- NOTE | 2023-09-07 09:30 | P.PNOBGPC ---
Subjective - Subjective Principal diagnosis: Status post primary postoperative day #2 Interval history: Patient is doing okay. She is ambulating. She did get sore last night and did take 1 oxycodone. She is passing flatus but no bowel movement yet. She is trying to breast-feed her baby is in level I nursery. Her bleeding has been minimal. Patient was emotional this morning worried that her babies may have to stay in the nursery longer. Patient reports: Reports appetite normal, Reports voiding normally, Reports pain well controlled, Reports ambulating normally : other (In level I nursery) Objective - Vital Signs Latest vital signs: Vital Signs Temp Pulse Resp BP Pulse Ox 09/07/23 07:40 98.1 F 74 16 109/73 98 09/06/23 23:00 98.2 F 95 16 118/69 100 09/06/23 15:01 98.0 F 86 16 113/67 99 09/06/23 12:29 98.5 F 89 16 113/75 95 Intake and Output 09/06/23 09/07/23 09/07/23 22:59 06:59 14:59 Intake Total 960 Balance 960 Intake: Oral 960 Other: Voiding Method Indwelling Catheter # Voids 1 1 # Bowel Movements 0 - Exam Extremities: Present: normal. Absent: tenderness, edema Abdomen: Present: normal appearance, soft (Positive bowel sounds 4). Absent: distention, tenderness Incision: Present: normal, dry, intact. Absent: erythematous Uterus: Present: normal, firm. Absent: tenderness Assessment and Plan Assessment: Status post primary low transverse section for twin gestation postoperative day #2 (1) Dichorionic diamniotic twin in third trimester Current Visit: No Status: Acute Code(s): O30.043 - TWIN , DICHORIONIC/DIAMNIOTIC, THIRD TRIMESTER SNOMED Code(s): 919538089 (2) 37 weeks gestation of Current Visit: No Status: Acute Code(s): Z3A.37 - 37 WEEKS GESTATION OF SNOMED Code(s): 08222435 (3) Intrauterine growth restriction (IUGR) affecting care of mother, third trimester, single gestation Current Visit: No Status: Acute Code(s): O36.5930 - MATERN CARE FOR OTH OR SUSP POOR FETL GRTH, THIRD TRI, UNSP SNOMED Code(s): 507698620 Plan: Continue postoperative and care. Patient is reassured regarding her babies in the nursery. She declines a need for any anti-anxiety or her antidepressant medication.
--- NOTE | 2023-09-08 08:02 | P.PNOBGPC ---
Subjective - Subjective Principal diagnosis: Status post primary section postoperative day #3 Interval history: Patient is doing well. She is ambulating. She is passing flatus and bowel movement. Bleeding has been minimal. She is pumping her breast milk. Patient reports: Reports appetite normal, Reports voiding normally, Reports pain well controlled, Reports ambulating normally : other (In level I nursery) Objective - Vital Signs Latest vital signs: Vital Signs Temp Pulse Resp BP Pulse Ox 09/08/23 03:56 97.9 F 69 16 125/78 98 09/07/23 20:00 98.5 F 80 16 114/71 09/07/23 15:56 98.0 F 76 16 119/75 100 09/07/23 14:01 98.3 F 102 H 18 107/61 99 Intake and Output 09/07/23 09/08/23 09/08/23 22:59 06:59 14:59 Other: # Voids 1 2 - Exam Extremities: Present: normal. Absent: tenderness, edema Abdomen: Present: normal appearance, soft (Positive bowel sounds 4). Absent: distention, tenderness Incision: Present: normal, dry, intact. Absent: erythematous Uterus: Present: normal, firm. Absent: tenderness Assessment and Plan Assessment: Status post primary low transverse section postoperative day #3 (1) Dichorionic diamniotic twin in third trimester Current Visit: No Status: Acute Code(s): O30.043 - TWIN , DICHORIONIC/DIAMNIOTIC, THIRD TRIMESTER SNOMED Code(s): 678461415 (2) 37 weeks gestation of Current Visit: No Status: Acute Code(s): Z3A.37 - 37 WEEKS GESTATION OF SNOMED Code(s): 45288887 (3) Intrauterine growth restriction (IUGR) affecting care of mother, third trimester, single gestation Current Visit: No Status: Acute Code(s): O36.5930 - MATERN CARE FOR OTH OR SUSP POOR FETL GRTH, THIRD TRI, UNSP SNOMED Code(s): 191657281 Plan: Continue with postoperative and care today. Anticipate discharge home tomorrow. Patient may elect to stay 1 more day due to the babies being in the nursery if there is not a need for her room. All questions answered. Prescriptions have been sent in to her pharmacy. Dr. Silverman will see the patient on Monday.
--- NOTE | 2023-09-09 07:00 | P.PNOBGPC ---
Subjective - Subjective Patient reports: Reports appetite normal, Reports voiding normally, Reports pain well controlled, Reports ambulating normally : doing well Objective - Vital Signs Latest vital signs: Vital Signs Temp Pulse Resp BP Pulse Ox 09/09/23 00:00 98.1 F 80 15 113/67 98 09/08/23 17:00 98.3 F 84 16 127/71 98 09/08/23 09:00 97.8 F 76 16 115/71 98 Intake and Output 09/08/23 09/08/23 09/09/23 14:59 22:59 06:59 Intake Total 600 Balance 600 Intake: Oral 600 Other: # Voids 2 1 - Exam Lungs: bilateral: normal Chest: Normal S1, Normal S2 Extremities: Present: normal Abdomen: Present: normal appearance, soft. Absent: distention, tenderness Incision: Present: normal, dry, intact Uterus: Present: normal, firm Assessment and Plan Assessment: Postoperative day #4. Patient is resting without complaints. Vital signs are stable she's afebrile. Her incision is intact and dry. My impression this is a normal postoperative course. Plan is to continue routine postoperative care discharge home later today. (1) delivery delivered Current Visit: Yes Status: Acute Code(s): O82 - ENCOUNTER FOR DELIVERY WITHOUT INDICATION SNOMED Code(s): 676085112
--- NOTE | 2023-09-09 07:02 | P.DS ---
Providers Date of admission: 09/05/23 06:06 Expected date of discharge: 09/09/23 Attending physician: Shanda Mcbride Primary care physician: Stated None - Discharge Diagnosis(es) (1) delivery delivered Current Visit: Yes Status: Acute Hospital Course: Please see dictated H&P and delivery note per Dr. Mcbride on this patient's admission and delivery. In brief summary this is a pleasant 28-year-old 2 para 1 female 37-0/7 weeks gestation admitted to labor and delivery for primary section there are to twin gestation. Patient undergoes above- named surgery for twin viable female infants. Please see dictated operative note. Postoperative patient does well and on postoperative for's felt be stable for discharge home follow up with Dr. Castillo in 1 week. Procedures: Primary low transverse section Patient Condition at Discharge: Good Plan - Discharge Summary Discharge Rx Participant: No New Discharge Prescriptions: New Ibuprofen [Motrin] 600 mg PO Q6H #60 tab Continue Ferrous Sulfate [Iron (65 MG Elemental)] 325 mg PO DAILY Discontinued Aspirin 81 mg PO DAILY Discharge Medication List Ferrous Sulfate [Iron (65 MG Elemental)] 325 mg PO DAILY 09/01/23 [History] Ibuprofen [Motrin] 600 mg PO Q6H #60 tab 09/08/23 [Rx] Follow up Appointment(s)/Referral(s): Shanda Mcbride DO [Doctor of Osteopathic Medicine] - 10/17/23 9:00 am (Post Op Appointment 09-15-2023 at 11:30am) Activity/Diet/Wound Care/Special Instructions: Instructions 1. Do not begin any exercise program for 3 weeks. 2. Do not resume sexual relations for 3 weeks or longer if uncomfortable. 3. You may take tub baths or showers at any time. 4. You may use tampons if desired after 3 weeks. 5. Keep the area of episiotomy (stitches) clean and dry. 6. If you are not nursing, wear a good fitting, supportive bra during the day and limit fluid intake for at least 1 week to prevent breast engorgement. 7. Call the office, [phone], within the next week to make appointment for your 6 week checkup if it has not already been made. 8. Report any of the following occurrences to the doctor promptly: a. Heavy, excessive bleeding b. Chills, fever c. Burning or frequency of urination d. Pain or redness and breasts if nursing e. Increasing pain or swelling in episiotomy (stitches). In addition to the above instructions, the following additional should be followed: 1. No heavy lifting or straining (exercising) until after 6 week checkup. 2. Keep abdominal incision clean and dry: You may wear a dressing if more comfortable. 3. Make office appointment for 10 days after going home or as instructed by her doctor. Discharge Disposition: HOME SELF-CARE
[2023-09-09 16:12] VITALS: BP 118/72; PULSE 78; RESP 18; TEMP 97.5
== END 2023-09-09 18:25 | disposition home or self-care (01) | DRG 788 ==
LOC: 4FBP 06:06
PROVIDERS: ADMIT Obstetrics & Gynecology; ATTEND Obstetrics & Gynecology
PROC: 10D00Z1 Extraction of Products of Conception, Low, Open Approach (ICD-10-PCS; principal; 2023-09-05 08:00)
DX: O36.5931 Maternal care for other known or suspected poor fetal growth, third trimester, fetus 1 (principal); O36.5932 Maternal care for other known or suspected poor fetal growth, third trimester, fetus 2; O32.8XX2 Maternal care for other malpresentation of fetus, fetus 2; Z37.2 Twins, both liveborn; O30.043 Twin pregnancy, dichorionic/diamniotic, third trimester; Z3A.37 37 weeks gestation of pregnancy; Z28.310 Unvaccinated for COVID-19; O99.62 Diseases of the digestive system complicating childbirth; K21.9 Gastro-esophageal reflux disease without esophagitis; O99.73 Diseases of the skin and subcutaneous tissue complicating the puerperium; L29.9 Pruritus, unspecified; Z79.82 Long term (current) use of aspirin; Z79.899 Other long term (current) drug therapy
CPT/HCPCS: 85025; 86850; 86900; 86901; 88307